=== PATIENT | male | born 1960 | race Caucasian/White ===

== ENCOUNTER → 2016-08-23 | Outpatient (CLI) | payer BC ==
--- NOTE | 2016-08-23 13:14 | DIAGNOSTIC IMAGING REPORT ---
CHEST 2 VIEWS ROUTINE CLINICAL HISTORY: R07.89 CHEST PAIN RIGHT AXILLARY PAIN COMPARISON STUDY: No previous studies for comparison. FINDINGS: The cardiac and mediastinal contours are normal. There is no evidence of focal pulmonary consolidation. There is no evidence of failure. No pleural effusions are visualized.[ IMPRESSION: No active disease in the chest. Electronically signed by: Nader Mendoza M.D. 08/23/2016 1:13 PM Dictated Date/Time: 08/23/2016 1:12 PM
== END | disposition home or self-care (01) ==
LOC: C.RAD1850 13:03
PROVIDERS: ATTEND Nurse Practitioner Family
DX: R07.89 Other chest pain (principal); M79.621 Pain in right upper arm